=== PATIENT | male | born 1940 | race Caucasian/White ===

== ENCOUNTER 2020-12-20 06:41 | Emergency (ER) | payer MEDICARE, BC ==
[~2020-12-20] VITALS: Ht 175.3 cm; Wt 79.5 kg
[2020-12-20 07:23] LABS: BASO % 0.5 % (0.0-1.0); EOS # 0.2 10^3/uL (0.0-0.5); EOS % 2.7 % (0.0-3.0); HEMATOCRIT 40.4 % (42.0-52.0); HEMOGLOBIN 12.9 g/dl (13.5-17.5); LYMPH # 1.5 10^3/uL (1.5-5.0); LYMPH % 22.8 % (24.0-44.0); MEAN CORPUSCULAR HEMOGLOBIN 30.9 pg (27.0-33.0); MEAN CORPUSCULAR HGB CONC 31.9 g/dl (32.0-36.5); MEAN CORPUSCULAR VOLUME 96.9 fl (80.0-96.0); MONO # 0.5 10^3/uL (0.0-0.8); NEUTROPHILS # 4.3 10^3/uL (1.5-8.5); NEUTROPHILS % 66.8 % (36.0-66.0); PLATELET COUNT, AUTOMATED 148 10^3/uL (150-450); RED BLOOD COUNT 4.17 10^6/uL (4.30-6.10); WHITE BLOOD COUNT 6.4 10^3/uL (4.0-10.0)
[2020-12-20 07:27] LABS: BLOOD UREA NITROGEN 25 MG/DL (7-18); CALCIUM LEVEL 8.9 MG/DL (8.8-10.2); CARBON DIOXIDE LEVEL 27 MEQ/L (21-32); CHLORIDE LEVEL 108 MEQ/L (98-107); CK-MB VALUE MASS 1.6 NG/ML (<3.6); CPK CREATINE PHOSPHOKINASE 46 U/L (39-308); CREATININE FOR GFR 1.34 MG/DL (0.70-1.30); GLOMERULAR FILTRATION RATE 54.9 (>42); GLUCOSE, FASTING 150 MG/DL (70-100); MB/CK RELATIVE INDEX 3.48 (< OR =4); POTASSIUM SERUM 4.2 MEQ/L (3.5-5.1); SODIUM LEVEL 141 MEQ/L (136-145); TROPONIN I < 0.02 NG/ML (< 0.10)
[2020-12-20 07:44] LABS: ALBUMIN 3.1 GM/DL (3.2-5.2); ALT/SGPT 25 U/L (12-78); BILIRUBIN,DIRECT < 0.1 MG/DL (0.0-0.2); BILIRUBIN,TOTAL 0.3 MG/DL (0.2-1.0); LIPASE 99 U/L (73-393); TOTAL PROTEIN 6.8 GM/DL (6.4-8.2)
--- NOTE | 2020-12-20 07:59 | ECGEPIP ---
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
--- NOTE | 2020-12-20 08:01 | ECGEPIP ---
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
[2020-12-20] MEDS ORDERED: VALS160T2 PO (08:05)
[2020-12-20] MEDS ORDERED: SERT25TA85 PO (08:05)
[2020-12-20] MEDS ORDERED: AZIT-12 PO (08:05)
[2020-12-20] MEDS ORDERED: ISOS1TAB35 PO (08:05)
[2020-12-20] MEDS ORDERED: BISO5TAB14 PO (08:05)
[2020-12-20] MEDS ORDERED: PANT40TA29 PO (08:05)
[2020-12-20] MEDS ORDERED: METF-838 PO (08:05)
[2020-12-20] MEDS ORDERED: MONT10TA10 PO (08:05)
[2020-12-20] MEDS ORDERED: SIMV40TA20 PO (08:05)
[2020-12-20] MEDS ORDERED: XARE20TA PO (08:05)
[2020-12-20] MEDS ORDERED: PERF20NE2 INH (08:07)
--- NOTE | 2020-12-20 08:07 | REP ---
INDICATION: CHEST PAIN. COMPARISON: None TECHNIQUE: Portable AP chest with the patient upright. FINDINGS: There are nodular densities in the right hilus. There is a small nodule in the left upper lobe. There are no infiltrates or pleural effusions. Lung tellez are hyperinflated. Cardiac size is normal. Mediastinum and skeletal structures are unremarkable. IMPRESSION: Nodular densities in the right hilus. Small left upper lobe nodule. Hyperinflation. <Electronically signed by Ramiro Brooks > 12/20/20 0870
[2020-12-20] MEDS ORDERED: NITR0.4S14 SL (08:08)
[2020-12-20 08:17] LABS: INR 1.42; PROTHROMBIN TIME 17.8 SECONDS (12.7-14.5)
[2020-12-20 08:18] LABS: PARTIAL THROMBOPLASTIN TIME 35.1 SECONDS (25.9-37.0)
[2020-12-20] MEDS ORDERED: IPRATROPIUM 0.5MG/ALBUTEROL 2.5MG INH SOL UD 3ML (DUONEB) NEB ONE (08:45)
[2020-12-20] MEDS ORDERED: ISOVUE-370 76% 100ML VIAL As Ordered ONE (08:46)
--- NOTE | 2020-12-20 09:22 | REP ---
INDICATION: chest pain. COMPARISON: 06/02/2006 TECHNIQUE: CTA chest FINDINGS: There is no evidence of pulmonary embolus. The ascending aorta, aortic arch and descending thoracic aorta are all unremarkable. The lungs are emphysematous. There are chronic changes at the apices and apical pleural thickening. There is no hilar or mediastinal adenopathy. Adrenal glands not enlarged. IMPRESSION: No evidence of pulmonary embolus. Chronic pleural and parenchymal changes at the apices. Emphysema. <Electronically signed by Geronimo Arguello > 12/20/20 0918
[2020-12-20] MEDS ORDERED: hydroCHLOROthiazide 12.5 MG CAPSULE PO ONE (09:30)
[2020-12-20] MEDS ORDERED: bisoproloL fumarate 5 MG TAB PO ONE (09:30)
[2020-12-20] MEDS ORDERED: VALSARTAN 80 MG TAB (DIOVAN) PO ONE (09:30)
[2020-12-20 10:07] VITALS: BP 197/82
[2020-12-20 13:49] LABS: CK-MB VALUE MASS 2.2 NG/ML (<3.6); CPK CREATINE PHOSPHOKINASE 47 U/L (39-308); MB/CK RELATIVE INDEX 4.68 (< OR =4); TROPONIN I < 0.02 NG/ML (< 0.10)
[2020-12-20 14:01] VITALS: BP 171/70
--- NOTE | 2020-12-21 08:42 | ECGEPIP ---
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
== END 2020-12-20 14:40 | disposition home or self-care (01) ==
LOC: M ED 06:41
DX: R07.9 Chest pain, unspecified (principal); J43.9 Emphysema, unspecified; R11.0 Nausea; R91.1 Solitary pulmonary nodule; I45.19 Other right bundle-branch block; I48.91 Unspecified atrial fibrillation; I25.10 Atherosclerotic heart disease of native coronary artery without angina pectoris; G47.33 Obstructive sleep apnea (adult) (pediatric); Z95.5 Presence of coronary angioplasty implant and graft; F17.200 Nicotine dependence, unspecified, uncomplicated; Z88.8 Allergy status to other drugs, medicaments and biological substances; Z79.899 Other long term (current) drug therapy
CPT/HCPCS: 36415; 71045; 71275; 80048; 80076; 82550; 82553; 83690; 84484; 85025; 85610; 85730; 93005; 93041; 94640; 94760; 99285; Q9967